=== PATIENT | female | born 1990 | race Caucasian/White ===

== ENCOUNTER 2018-09-23 00:01 | Inpatient (IN) | payer BC ==
[~2018-09-23] VITALS: Ht 162.6 cm; Wt 77.0 kg
[2018-09-23] MEDS ORDERED: PRENATAL ONE T1 EACH PO (03:16)
[2018-09-23] MEDS ORDERED: ZANTAC150 MG PO (03:17)
[2018-09-23] MEDS ORDERED: METAMUCIL FIBE3.4 GM PO (03:17)
--- NOTE | 2018-09-23 09:29 | PR ---
[facility] [address] [place], [place] [address] Signed Progress Notes IP Datetime Report Generated by CPN: 09/23/2018 09:29 PROGRESS NOTES: [id number] Impression: Reassuring heart rate Other Impressions: Late entry Procedures: Artificial ROM Plan: Deliver- Section Informed Consent Obtain: Section Delivery VITAL SIGNS: [id number] Vital Signs: Reviewed; Within Normal Limits EXAM: [id number] Dilatation: 4.0 Effacement: 90 Station: -2 Uterine Contractions: every 2-3 minutes MEMBRANES: [id number] Membrane Status: Ruptured Amniotic Fluid Color: Bloody ROM Note: AROM with small amount bloody fluid Comments: Patient just received Epidural when had bradycardia, lasting about 7 minutes, in the 70's. Patient given O2, tried different positions, AROM with scalpelectrode inserted, but continued bradycardia and blood from vagina, so considered abruption even though uterus was soft, so no Terbutaline given. Since unable to get FHR up, Code 4 C/S called. Patient taken to OR, with Anesthesia already here. Fetus A: [id number] FHR Baseline: 125 Variability: Moderate 6-25bpm Accelerations: 15X15 Decelerations: Prolonged Presentation: Vertex Fetus B: [id number] Signing Physician: Dwaine Braswell MD Copies: ~ *Electronically Signed* 09/23/18 0929 DWAINE BRASWELL MD PATIENT NAME: AG MARTINO PROGRESS NOTE DATE OF : [birth year] PHYSICIAN: DWAINE BRASWELL MD RPT #: [id number] REPORT IS CONFIDENTIAL AND NOT TO BE RELEASED WITHOUT AUTHORIZATION
--- NOTE | 2018-09-23 10:21 | NUR ---
09/23/18 1021 Sheets,[place] 0904 PT ARRIVED TO ROOM 105, PT AWAKE AND TALKING TO RN. PT SHAKING SLIGHTLY. PT DENIES NAUSEA AND PAIN. PT EDUCATION GIVEN ON FUNDAL MASSAGE AND RECOVERY PLAN OF CARE. VSS, BABY TO CHEST WITH FBC RN AT BEDSIDE. IV INFUSING LR WITH PIT, IV SITE WNL. 0930 VSS. PT CONTINUES TO DENY NAUSEA AND PAIN. PT RESTING IN BED WITH BABY TO CHEST, FBC RN AT BEDSIDE. SHAKING HAS DECREASED TO PT DENIES ANY CONCERNS A THIS TIME. SCANT AMOUNT OF BLOOD NOTED ON JUSTIN PAD AND FUNAL MASSAGES REMAIN WNL. REPORT TO FBC RN.
--- NOTE | 2018-09-24 12:28 | PR ---
[facility] [address] [facility] [place] [address] Signed PP Progress Notes Datetime Report Generated by CPN: 09/24/2018 12:28 SUBJECTIVE: [id number] Pain: Within normal limits Nausea/Vomiting: Denies Flatus: Yes Vital Signs: [id number] Vital Signs: Reviewed; Within Normal Limits Notable Details: PP HGb/Hct = 9.1/25.9 EXAM: [id number] Abdomen/Uterus: Normal Lochia: Normal Extremities: Normal Incision: Normal IMPRESSION/PLAN/PROCEDURES: [id number] Impression: Normal progression Plan: Continue present management Procedures: None Progress Notes: Doing well, without complaint, voiding with slight burning first time. Signing Physician: Dwaine Braswell MD Copies: ~ *Electronically Signed* 09/24/18 1228 DWAINE BRASWELL MD PATIENT NAME: AG MARTINO PROGRESS NOTE DATE OF : [birth year] PHYSICIAN: DWAINE BRASWELL MD RPT #: [id number] REPORT IS CONFIDENTIAL AND NOT TO BE RELEASED WITHOUT AUTHORIZATION
--- NOTE | 2018-09-25 10:58 | PR ---
[facility] [address] [facility] [place], [place] [address] Signed PP Progress Notes Datetime Report Generated by CPN: 09/25/2018 10:58 SUBJECTIVE: [id number] Pain: Within normal limits Nausea/Vomiting: Denies Flatus: Yes Vital Signs: [id number] Vital Signs: Reviewed; Within Normal Limits Notable Details: PP HGb/Hct = 9.1/25.9 EXAM: [id number] Abdomen/Uterus: Normal Lochia: Normal Extremities: Normal Incision: Normal IMPRESSION/PLAN/PROCEDURES: [id number] Impression: Normal progression Other Impression: PP Anemia Plan: Discharge Procedures: None Progress Notes: Doing well, without complaint, ready to go home. Signing Physician: Dwaine Braswell MD Copies: ~ *Electronically Signed* 09/25/18 1058 DWAINE BRASWELL MD PATIENT NAME: AG MARTINO PROGRESS NOTE DATE OF : [birth year] PHYSICIAN: DWAINE BRASWELL MD RPT #: [id number] REPORT IS CONFIDENTIAL AND NOT TO BE RELEASED WITHOUT AUTHORIZATION
--- NOTE | 2018-09-25 11:02 | OR ---
[facility] [address] [place], [place] [address] Signed DATE OF OPERATION: 09/23/2018 SURGEON: Gold Moore MD Patient of Dr. Moore. PREOPERATIVE DIAGNOSES: Term , bradycardia. POSTOPERATIVE DIAGNOSES: Term , bradycardia. PROCEDURE: Primary low transverse segment section. Delivery of live male infant. BUFFET MANAGER: Dr. Watson. ANESTHESIA: Epidural. ESTIMATED BLOOD LOSS: 1000 mL. COMPLICATIONS: None. DRAINS: Sandoval to bladder. FINDINGS: Live male infant, 8 and 9. Weight 7 pounds 9 ounces. Normal uterus. Normal tubes and ovaries bilateral except for very small 1 cm pedunculated fibroid on the left anterior upper uterine surface. The fluid was light meconium stained. DESCRIPTION OF PROCEDURE: The patient was brought into the operating room, placed in the supine position. The patient already had epidural that was effective in her room, so this was used for anesthesia. The patient also already had Sandoval catheter in place. The patient was quickly prepped with Betadine and draped in the usual sterile fashion. A Pfannenstiel Electronically Signed By: GOLD MOORE MD 09/25/18 1102 PATIENT NAME: AG MARTINO OPERATIVE REPORT DATE OF : [birth year] REPORT #: [id number] PHYSICIAN: GOLD MOORE MD PCP: NO PRIMARY CARE PHYSICIAN REPORT IS CONFIDENTIAL AND NOT TO BE RELEASED WITHOUT AUTHORIZATION [facility] [address] [place], [place] [address] Signed skin incision was made with a scalpel, dissected through subcutaneous tissue with the scalpel and the fascia nicked with scalpel. The fascia was opened in transverse fashion with curved scissors. The underlying abdominal musculature was bluntly and sharply from the fascia above and below the incision. The abdominal musculature was bluntly along the midline. Peritoneum grasped with a hemostats, elevated, nicked with scissors and opened with finger dissection. The Erlin self-retaining retractor was inserted into the incision and tightened in place. The lower uterine segment was identified and nicked with scalpel and extended in transverse fashion using finger dissection and light meconium came from the incision. The was noted to be in a vertex HETAL presentation. The 's head easily delivered from the incision. The cord was noted to be around the neck once loosely. This was removed. The rest of the was easily delivered from the incision and the infant placed head down on his stomach to help with drainage while the cord was doubly clamped and cut. The infant passed off table in good condition awaiting nurse. Cord gases were obtained and the placenta manually removed. The uterine cavity explored a lap pad to remove any retained membranes. An angle stitch of 0 Monocryl was placed one end of the incision running locking stitch of 0 Monocryl starting at the other end used to close the incision. The bleeding did seem to be coming mostly from the incision, so the incision was closed using running locking stitch of 0 Monocryl starting at the other end of the incision. A 2nd running stitch of 0 Monocryl was used to imbricate the 1st layer. The left angle was noted to still have some bleeding. This was controlled with two [id number]-ko-vnxue stitches of 0 Monocryl suture. The entire pelvis was irrigated, suctioned, examined, and superficial bleeding spots were cauterized with the Bovie. At this point, good hemostasis was noted and so the Erlin retractor was removed. The anterior wall peritoneum was grasped with hemostats and sheet of ACell placed over the lower uterine segment to help with healing. The anterior wall peritoneum was then closed using running stitch of 2-0 Vicryl suture. The abdominal musculature was reapproximated using interrupted stitches of 0 Vicryl suture. The abdominal wall incision was irrigated, suctioned, examined, any superficial bleeding spots were cauterized with the Bovie. Powdered ACell sprinkled over the abdominal musculature to help with healing and the fascia closed using two running stitch of 0 Vicryl suture meeting in the midline. Subcutaneous tissue was irrigated, suctioned, examined, and any bleeding spots were cauterized with the Bovie. The subcutaneous tissue was then closed using interrupted stitches of 3-0 Vicryl suture and the skin reapproximated using skin clips. The patient tolerated the procedure well, went to recovery room in good condition. The sponge, needle, instrument count correct at the end of the procedure. Cord gases were sent to the lab. Gold Moore MD Electronically Signed By: GOLD MOORE MD 09/25/18 1102 PATIENT NAME: AG MARTINO OPERATIVE REPORT DATE OF : 89 REPORT #: [id number] PHYSICIAN: GOLD MOORE MD PCP: NO PRIMARY CARE PHYSICIAN REPORT IS CONFIDENTIAL AND NOT TO BE RELEASED WITHOUT AUTHORIZATION [place] [id number] Signed [facility] /[id number] Copies: ~ Electronically Signed By: GOLD MOORE MD 09/25/18 1102 PATIENT NAME: AG MARTINO OPERATIVE REPORT DATE OF : [birth year] REPORT #: [id number] PHYSICIAN: GOLD MOORE MD PCP: NO PRIMARY CARE PHYSICIAN REPORT IS CONFIDENTIAL AND NOT TO BE RELEASED WITHOUT AUTHORIZATION
== END 2018-09-25 13:05 | disposition home or self-care (01) | DRG 788 ==
LOC: FBC 00:01
PROVIDERS: ADMIT General Practice
PROC: 10907ZC Drainage of Amniotic Fluid, Therapeutic from Products of Conception, Via Natural or Artificial Opening (ICD-10-PCS; 2018-09-23)
PROC: 3E0P7VZ Introduction of Hormone into Female Reproductive, Via Natural or Artificial Opening (ICD-10-PCS; 2018-09-23)
PROC: 00HU33Z Insertion of Infusion Device into Spinal Canal, Percutaneous Approach (ICD-10-PCS; 2018-09-23)
PROC: 3E0R3BZ Introduction of Anesthetic Agent into Spinal Canal, Percutaneous Approach (ICD-10-PCS; 2018-09-23)
PROC: 10D00Z1 Extraction of Products of Conception, Low, Open Approach (ICD-10-PCS; principal; 2018-09-23 08:15)
DX: O76 Abnormality in fetal heart rate and rhythm complicating labor and delivery (principal); O77.0 Labor and delivery complicated by meconium in amniotic fluid; Z3A.40 40 weeks gestation of pregnancy; Z37.0 Single live birth; O69.81X0 Labor and delivery complicated by cord around neck, without compression, not applicable or unspecified; O90.81 Anemia of the puerperium; D64.9 Anemia, unspecified
CPT/HCPCS: 01960; 01961; 36415; 82803; 85027; C1763; J1100; J2274; J2370; J2405; J2590; J2704; J7120

== ENCOUNTER 2018-10-15 10:47 | Observation (INO) | payer BC ==
[~2018-10-15] VITALS: Ht 162.6 cm; Wt 76.7 kg
[~2018-10-15 10:47] MED LIST: METAMUCIL FIBE3.4 GM PO; PRENATAL ONE T1 EACH PO; ZANTAC150 MG PO
[2018-10-15] MEDS ORDERED: IBUPROFEN800 MG PO (11:13)
[2018-10-15] MEDS ORDERED: PERCOCET 5-3251 EACH PO (11:13)
--- NOTE | 2018-10-16 10:17 | HP ---
[facility] [address] [place], [place] [address] Signed ADMISSION DATE: 10/15/2018 REASON FOR ADMISSION: Acute appendicitis. 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 distress was indication for the operation. She tolerated the operation well and the child is now doing well. Further today, she began having lower abdominal pain more on the right than on the left. She presented to the emergency room where she was evaluated by Dr. Siu. This included lab studies showing a normal white count of 7.2 with hematocrit of 32.8, and platelets of 201,000, the chem profile which was normal except for potassium of 3.3, and urine which showed 30 mg% of protein and 10 RBCs per high-power field. Imaging study included a CT scan of the abdomen and pelvis, which demonstrated a dilated inflamed appendix. Additionally, gallstones were noted in the gallbladder, not associated with gallbladder wall thickening or pericholecystic fluid. She is admitted for further evaluation and care for presumed appendicitis. PAST MEDICAL HISTORY: Most remarkable for recent and childbirth as described. Her medications currently at home include oxycodone, ibuprofen, vitamin, and Metamucil fiber. SOCIAL HISTORY: She is . She is a practicing physician. She is from [place] where her family resides. REVIEW OF SYSTEMS: She denies any shortness of breath or chest pain. She has had no dysphagia dysuria denies any hematemesis or blood per rectum. PHYSICAL EXAMINATION: GENERAL: Pleasant white woman who does not look to be in severe distress. Her toxicity. She is actively breed breast-feeding her child. CHEST: Clear HEART: Regular without murmur. Trachea is midline. There is no thyromegaly or cervical adenopathy. ABDOMEN: Shows mild distention. Rovsing sign is positive. There is tenderness in the right lower quadrant. EXTREMITIES: Show no clubbing, cyanosis, or edema. Electronically Signed By: JENNIFER BROOKS MD 10/16/18 1017 PATIENT NAME: AG MARTINO HISTORY AND PHYSICAL DATE OF : [birth year] REPORT #: [id number] PHYSICIAN: JENNIFER BROOKS MD PCP: NO PRIMARY CARE PHYSICIAN REPORT IS CONFIDENTIAL AND NOT TO BE RELEASED WITHOUT AUTHORIZATION [facility] [address] [place], [place] [address] Signed LAB STUDIES: Show a white count of 7.2, hematocrit 32.8, platelets 21,000. Chem profile was normal as described. Urinalysis as previously noted. ASSESSMENT AND PLAN: I reviewed the CT scan in detail with the radiologist. Quite obvious is the finding of the dilated, edematous, and elongated appendix consistent with appendicitis per her history. Her gallbladder does have gallstones, but she is symptom-free in that regard. I have recommended additional fluids, parenteral antibiotics, and planned for an appendectomy preferred by a laparoscopic approach today. The risks of bleeding, infection, need for open procedure and other unforeseen complications were reviewed in detail. I think she will tolerate operation well. Her questions have been answered. Jennifer Brooks MD JM/MODL /[id number] cc: Dr. Siu Copies: ~ Electronically Signed By: JENNIFER BROOKS MD 10/16/18 1017 PATIENT NAME: AG MARTINO HISTORY AND PHYSICAL DATE OF : [birth year] REPORT #: [id number] PHYSICIAN: JENNIFER BROOKS MD PCP: NO PRIMARY CARE PHYSICIAN REPORT IS CONFIDENTIAL AND NOT TO BE RELEASED WITHOUT AUTHORIZATION
--- NOTE | 2018-10-16 10:17 | OR ---
[facility] [address] [place], [place] [address] Signed DATE OF OPERATION: 10/15/2018 SURGEON: Jennifer Brooks MD PREOPERATIVE DIAGNOSES: 1. Acute appendicitis. 2. three weeks of . 3. Asymptomatic gallstones. POSTOPERATIVE DIAGNOSES: 1. Acute appendicitis. 2. three weeks of . 3. Asymptomatic gallstones. PROCEDURE: Laparoscopic appendectomy. ANESTHESIA: General endotracheal by Namrata Arrieta CRNA and local 20 mL of 0.25% Marcaine with epinephrine. 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 She is three weeks from emergency . She has developed lower abdominal pain earlier in the day and presented to the emergency room where she was evaluated by Dr. Siu and found to have tenderness in the right lower abdomen and a CT scan finding consistent with appendicitis. Her white count is normal. Liver enzymes are normal. Incidentally noted were gallstones on the CT scan. She has had no biliary symptoms. She has been fluid resuscitated, given intravenous antibiotics, parenteral pain medication, and so forth and is now to undergo appendectomy preferably by laparoscopic approach. The risks of bleeding, infection, need for open procedure, and other unforeseen complications were reviewed and understood as well. As she is asymptomatic from the gallstones incidentally noted on CT scan, a cholecystectomy is not anticipated at this time. FINDINGS: The appendix was dilated and inflamed, but not perforated. The terminal ileum was normal. The gallbladder appeared grossly normal. The liver was normal as well. Appendectomy was performed without problem. The uterus appeared to be healing from recent . Electronically Signed By: JENNIFER BROOKS MD 10/16/18 1017 PATIENT NAME: AG MARTINO OPERATIVE REPORT DATE OF : [birth year] REPORT #: [id number] PHYSICIAN: JENNIFER BROOKS MD PCP: NO PRIMARY CARE PHYSICIAN REPORT IS CONFIDENTIAL AND NOT TO BE RELEASED WITHOUT AUTHORIZATION [facility] [address] [place], [place] [address] Signed DESCRIPTION OF PROCEDURE: The patient was brought to the operating room given a general endotracheal anesthetic. Additional cefoxitin antibiotic was administered. Sequential compression device stockings were in place. Heparin had been subcutaneously administered. After satisfactory general endotracheal anesthesia, the abdomen was prepared with a chlorhexidine solution and draped sterilely. An infraumbilical incision was made and using an open Shelly cannula technique, pneumoperitoneum was achieved to a level of 14 mmHg of carbon dioxide gas. Intraabdominal inspection showed no sign of ascites or carcinomatosis. There was some inflammatory clear fluid in the right lower abdomen. Upper abdominal examination showed normal liver. The gallbladder appeared reasonably normal. An epigastric 12 mm port was placed and the camera replaced to that site. The table was placed in a [id number] position. Single hand manipulation of the cecum and ilium revealed a congested, inflamed, and injected appendix. The right lower quadrant 5 mm port was then placed with two-hand manipulation, the appendix elevated. A window was created between the appendix and the cecum and an Endo-JOHNATHAN stapling device used to transect the appendix flushed with the cecum. This allowed for elevation of the appendix and the mesoappendix for further dissection. Application of a single load of Endo-JOHNATHAN stapling device with a vascular load allowed for security of the mesentery. There were two punctate bleeders that were easily secured with minimal amount of electrocautery. The appendix was withdrawn into the infraumbilical Shelly cannula and withdrawn. Additional photograph was taken. The pneumoperitoneum was re-established and inspection in the right lower abdomen was undertaken. Irrigation was undertaken. Excess irrigation fluid was suctioned free. Both staple lines were hemostatic. The right lower quadrant trocar was then removed without problem showing no sign of bleeding. The camera was replaced. The infraumbilical site in the epigastric port was removed showing no sign of bleeding. The trocars were removed fully and plans made for closure. The infraumbilical fascial incision was reapproximated with interrupted #0 Vicryl suture. Irrigation was undertaken. Skin closed with interrupted #3-0 Vicryl. Steri-Strips were applied. The patient was ultimately extubated and transferred to recovery in good condition having suffered no complications. Sponge, needle, and counts reported as correct x3. Jennifer Brooks MD Electronically Signed By: JENNIFER BROOKS MD 10/16/18 1017 PATIENT NAME: AG MARTINO OPERATIVE REPORT DATE OF : [birth year] REPORT #: [id number] PHYSICIAN: JENNIFER BROOKS MD PCP: NO PRIMARY CARE PHYSICIAN REPORT IS CONFIDENTIAL AND NOT TO BE RELEASED WITHOUT AUTHORIZATION [address] [address] Signed KLAUDIA/MIMA /[id number] cc: MD Mc Peralta MD Dr. Andrew Schwartz Dr. Biana Manchik Copies: DWAINE BRASWELL MD, WILLIAM S MD ~ Electronically Signed By: JENNIFER BROOKS MD 10/16/18 1017 PATIENT NAME: AG MARTINO OPERATIVE REPORT DATE OF : [birth year] REPORT #: [id number] PHYSICIAN: JENNIFER BROOKS MD PCP: NO PRIMARY CARE PHYSICIAN REPORT IS CONFIDENTIAL AND NOT TO BE RELEASED WITHOUT AUTHORIZATION
== END 2018-10-16 11:50 | disposition home or self-care (01) ==
LOC: ED 10:47 → MS 10:49
PROVIDERS: ADMIT Surgery
PROC: 0DTJ4ZZ Resection of Appendix, Percutaneous Endoscopic Approach (ICD-10-PCS; principal; 2018-10-15 17:30)
DX: O99.63 Diseases of the digestive system complicating the puerperium (principal); K35.80 Unspecified acute appendicitis; G89.29 Other chronic pain; M54.9 Dorsalgia, unspecified; Z79.1 Long term (current) use of non-steroidal anti-inflammatories (NSAID); Z79.891 Long term (current) use of opiate analgesic; Z79.899 Other long term (current) drug therapy
CPT/HCPCS: 00840; 74177; 80053; 81001; 84703; 85025; 96361; 96365; 96366; 96372; 96375; 96376; 99285-25; G0378; J0131; J0694; J1100; J1644; J1885; J2405; J2704; J3010; J7030; J7060; J7120; Q9967